=== PATIENT | female | born 1990 | race Caucasian/White ===

== ENCOUNTER 2016-09-02 21:14 | Inpatient (IN) | payer OTHER, BC ==
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
[2016-09-02] MEDS ORDERED: LORazepam 1 MG TAB ONE (21:52)
[2016-09-02] MEDS ORDERED: LORazepam 1 MG TAB PO ONE (21:59)
[2016-09-02 22:04] LABS: % IMMATURE GRANULYOCYTES 0.3 % (0.0-1.1); ABSOLUTE IMMATURE GRANULOCYTES 0.02 10^3/uL (0.00-0.10); ADD DIFF? NO; ADD MORPH? NO; ADD SCAN? NO; ATYPICAL LYMPHOCYTE FLAG 10 (0-99); FRAGMENT RBC FLAG 0 (0-99); HEMATOCRIT 37.9 % (38.0-47.0); HEMOGLOBIN 12.6 g/dL (12.6-16.3); LEFT SHIFT FLG 0 (0-99); LIPEMIA HEMOLYSIS FLAG 80 (0-99); MEAN CELL HEMOGLOBIN 27.9 pg (27.9-34.1); MEAN CELL HEMOGLOBIN CONCENTR. 33.2 g/dL (32.4-36.7); MEAN CELL VOLUME 83.8 fL (81.5-99.8); MEAN PLATELET VOLUME 9.6 fL (8.7-11.7); PLATELET CLUMPS FLAG 0 (0-99); PLATELET COUNT 278 10^3/uL (150-400); RED BLOOD CELL COUNT 4.52 10^6/uL (4.18-5.33); RED CELL DISTRIBUTION WIDTH 13.1 % (11.5-15.2)
[2016-09-02 22:16] LABS: ANION GAP 10 mEq/L (8-16); CALCIUM 9.4 mg/dL (8.5-10.4); CARBON DIOXIDE 23 mEq/l (22-31); CHLORIDE 102 mEq/L (97-110); CREATININE 0.7 mg/dL (0.6-1.0); ETHANOL SERUM < 10 mg/dL (0-10); GLOMERULAR FILTRATION RATE > 60; GLUCOSE 92 mg/dL (70-100); SODIUM 135 mEq/L (134-144)
[2016-09-03] MEDS ORDERED: OLANZapine DISINTEGR 10 MG TAB PO PRN (15:31)
[2016-09-03] MEDS ORDERED: LORazepam 0.5 MG TAB PO PRN (15:31)
[2016-09-03] MEDS ORDERED: MAGNESIUM HYDROXIDE 30 ML UDCUP PO PRN (15:31)
[2016-09-03] MEDS: clonazePAM 0.5 MG TAB PO PRN (16:13)
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
[2016-09-03] MEDS ORDERED: risperiDONE 0.5 MG TAB PO PRN (17:21)
[2016-09-03] MEDS: risperiDONE 1 MG TAB PO SCH (20:34)
[2016-09-03] MEDS: DIVALPROEX ER 500 MG TAB PO SCH (20:34)
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
[2016-09-04] MEDS ORDERED: OLANZapine 10 MG/2 ML VIAL IM ONE ×2 (08:21→08:30)
[2016-09-04] MEDS ORDERED: LORazepam 2 MG/ML INJ ONE (08:22)
[2016-09-04] MEDS ORDERED: OLANZapine DISINTEGR 10 MG TAB PO ONE (08:30)
[2016-09-04] MEDS ORDERED: LORazepam 2 MG/ML INJ IM ONE (08:30)
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
[2016-09-04] MEDS: risperiDONE 1 MG TAB PO SCH ×2 (10:27→20:54)
[2016-09-04] MEDS: DIVALPROEX ER 500 MG TAB PO SCH ×2 (10:28→20:54)
[2016-09-04] MEDS: clonazePAM 0.5 MG TAB PO PRN ×2 (10:28→20:59)
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
[2016-09-04] MEDS: PRAZOSIN HCL 1 MG CAP PO SCH (20:54)
[2016-09-04] MEDS ORDERED: PRAZOSIN HCL 1 MG CAP PO PRN (22:20)
[2016-09-05] MEDS: NICOTINE POLACRILEX 2 MG GUM B PRN ×2 (06:54→23:51)
[2016-09-05] MEDS: clonazePAM 0.5 MG TAB PO PRN ×2 (06:54→16:02)
[2016-09-05] MEDS: DIVALPROEX ER 500 MG TAB PO SCH ×4 (08:29→23:50)
[2016-09-05] MEDS: traMADol 50 MG TAB PO PRN ×2 (08:29→14:43)
[2016-09-05] MEDS: risperiDONE 1 MG TAB PO SCH ×3 (08:29→23:50)
[2016-09-05] MEDS: ACETAMINOPHEN 325 MG TAB PO PRN ×2 (10:51→12:25)
[2016-09-05] MEDS ORDERED: ONDANSETRON 0.8 MG/ML UDSYR PO PRN (12:03)
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
[2016-09-05] MEDS: hydrOXYzine HCL 25 MG TAB PO PRN (16:02)
[2016-09-05] MEDS: PRAZOSIN HCL 1 MG CAP PO SCH ×2 (21:01→23:51)
[2016-09-06] MEDS: traMADol 50 MG TAB PO PRN (00:13)
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
[2016-09-06] MEDS: risperiDONE 1 MG TAB PO SCH ×2 (08:28→19:41)
[2016-09-06] MEDS: DIVALPROEX ER 500 MG TAB PO SCH ×2 (08:28→17:34)
[2016-09-06] MEDS: hydrOXYzine HCL 25 MG TAB PO PRN (12:54)
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
[2016-09-06] MEDS: clonazePAM 0.5 MG TAB PO PRN (18:08)
[2016-09-06] MEDS: PRAZOSIN HCL 1 MG CAP PO SCH (19:41)
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
[2016-09-07] MEDS: risperiDONE 1 MG TAB PO SCH ×3 (09:00→20:20)
[2016-09-07] MEDS: DIVALPROEX ER 500 MG TAB PO SCH ×2 (09:01→17:33)
[2016-09-07] MEDS: clonazePAM 0.5 MG TAB PO PRN (12:24)
[2016-09-07] MEDS: traMADol 50 MG TAB PO PRN (12:24)
[2016-09-07] MEDS ORDERED: risperiDONE 1 MG TAB PO SCH (13:30)
[2016-09-07] MEDS: clonazePAM 0.5 MG TAB PO SCH ×2 (15:47→20:18)
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
[2016-09-07] MEDS: ACETAMINOPHEN 325 MG TAB PO PRN (16:29)
[2016-09-07] MEDS: PRAZOSIN HCL 1 MG CAP PO SCH (20:18)
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
[2016-09-08] MEDS: clonazePAM 0.5 MG TAB PO SCH ×3 (08:23→20:40)
[2016-09-08] MEDS: risperiDONE 1 MG TAB PO SCH ×3 (08:23→20:41)
[2016-09-08] MEDS: DIVALPROEX ER 500 MG TAB PO SCH ×2 (08:23→20:40)
[2016-09-08] MEDS: buPROPion XL 150 MG TAB PO SCH (10:20)
[2016-09-08] MEDS: OLANZapine DISINTEGR 5 MG TAB PO PRN (11:39)
[2016-09-08] MEDS: clonazePAM 0.5 MG TAB PO PRN (11:39)
[2016-09-08] MEDS: traMADol 50 MG TAB PO PRN (11:47)
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
[2016-09-08] MEDS: PRAZOSIN HCL 1 MG CAP PO SCH (20:40)
[2016-09-09] MEDS: traMADol 50 MG TAB PO PRN ×2 (05:50→12:55)
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
[2016-09-09] MEDS: buPROPion XL 150 MG TAB PO SCH (09:22)
[2016-09-09] MEDS: risperiDONE 1 MG TAB PO SCH ×3 (09:22→19:50)
[2016-09-09] MEDS: DIVALPROEX ER 500 MG TAB PO SCH ×2 (09:22→19:50)
[2016-09-09] MEDS: clonazePAM 0.5 MG TAB PO SCH ×3 (09:23→19:48)
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
[2016-09-09] MEDS: ONDANSETRON DISINTEGRATING 4 MG TAB PO PRN (15:36)
[2016-09-09] MEDS: PRAZOSIN HCL 1 MG CAP PO SCH (19:50)
[2016-09-09] MEDS ORDERED: PRAZOSIN HCL 5 MG CAP PO SCH (21:00)
[2016-09-10] MEDS: ONDANSETRON DISINTEGRATING 4 MG TAB PO PRN (01:41)
[2016-09-10] MEDS: ACETAMINOPHEN 325 MG TAB PO PRN ×3 (01:41→16:21)
[2016-09-10] MEDS: traMADol 50 MG TAB PO PRN ×3 (01:42→14:59)
[2016-09-10] MEDS: MAG HYDROX/AL HYDROX/SIMETH 30 ML UDCUP PO PRN ×2 (06:44→21:34)
[2016-09-10] MEDS: DIVALPROEX ER 500 MG TAB PO SCH ×2 (08:20→20:39)
[2016-09-10] MEDS: buPROPion XL 150 MG TAB PO SCH (08:20)
[2016-09-10] MEDS: clonazePAM 0.5 MG TAB PO SCH ×3 (08:21→20:39)
[2016-09-10] MEDS: risperiDONE 1 MG TAB PO SCH ×3 (08:21→20:40)
[2016-09-10] MEDS: clonazePAM 0.5 MG TAB PO PRN ×2 (10:44→16:39)
[2016-09-10] MEDS: OLANZapine DISINTEGR 5 MG TAB PO PRN ×2 (10:45→16:39)
[2016-09-10] MEDS: NICOTINE POLACRILEX 2 MG GUM B PRN (15:00)
--- NOTE | 2016-09-10 15:40 | SOAPPROG ---
SOAP Progress Note Assessment/Plan: Assessment: Plan: 09/10/16 15:42 Slow progress. Erik regressed in some ways. CCM. Subjective: Pt seen, discussed with staff, chart reviewed. She is a 26 y/o CF with complex psychiatric picture. Erik regressed at this point in her treatment though continues to lie down in front of the RN's station on the floor in awkward positions with her hair covering her face and stay in that position for extended periods of time. No other real acting out behaviors. She requests AG and I discussed with her the fact that she will need to progress through the steps of removing SP and AP first. She is antagonistic and insulting. C/o bilateral hip pain today that his the sole focus of her interactions with myself and staff. She states she gets "some kind of shot" about every three months for this. Unable to say what that is. Claims "no one here give a shit" when I tell her we are unable to give her hip injections on this unit. I suggested to her that she consider not sitting or lying on the floor in the future as this will certainly worsen the condition. Objective: Vital Signs Temp Pulse Resp BP Pulse Ox 36.4 C 96 15 115/59 L 92 09/07/16 07:53 09/10/16 06:19 09/10/16 06:19 09/10/16 06:19 09/10/16 06:19 MSE: Antagonistic, irritable. Affect is o/w constricted, stable. Mood is "terrible." TP linear. TC reveals no psychosis. She reported herself 0/10 on the SP scale this morning but tells me now that "I want to cut my leg off it hurts so bad, but I'm not suicidal." - Time Spent With Patient Time Spent With Patient: 25" - Pending Discharge Pending Discharge Within 24 Hours: No Pending Discharge Within 48 Hours: No ICD10 Worksheet Patient Problems: Problems Problem Status Onset Behavioral disorder Acute Suicidal ideation Acute
[2016-09-10] MEDS: PRAZOSIN HCL 1 MG CAP PO SCH (20:39)
[2016-09-11] MEDS: buPROPion XL 150 MG TAB PO SCH (07:49)
[2016-09-11] MEDS: DIVALPROEX ER 500 MG TAB PO SCH ×2 (07:49→18:03)
[2016-09-11] MEDS: risperiDONE 1 MG TAB PO SCH ×3 (07:49→18:03)
[2016-09-11] MEDS: clonazePAM 0.5 MG TAB PO SCH ×3 (07:50→18:04)
[2016-09-11] MEDS: clonazePAM 0.5 MG TAB PO PRN ×2 (10:55→13:59)
[2016-09-11] MEDS: OLANZapine DISINTEGR 5 MG TAB PO PRN ×2 (10:55→14:39)
[2016-09-11] MEDS: traMADol 50 MG TAB PO PRN (10:55)
--- NOTE | 2016-09-11 11:26 | SOAPPROG ---
SOAP Progress Note Assessment/Plan: Assessment: Plan: 09/10/16 15:42 Slow progress. Less regressed in some ways. CCM. 09/11/16 11:28 Behaviorally stable. CCM. Will d/c AP to work towards d/c. Subjective: Pt seen briefly. Lying in bed with sheets over her head. Minimally interactive. Refuses further interview later. Behaviors remain in good control. Continues to request advancement in privileges. I discussed with her a plan to eliminate AP and then hopefully SP to allow her to more forward towards d/c. Objective: Vital Signs Temp Pulse Resp BP Pulse Ox 36.4 C 110 H 16 102/59 L 95 09/11/16 07:14 09/11/16 07:14 09/11/16 07:14 09/11/16 07:14 09/11/16 07:14 MSE: Calm, though guarded. Affect is blunted, stable. Mood is not stated. Appears linear. Acknowledges conversation. No overt psychosis. - Time Spent With Patient Time Spent With Patient: 15" ICD10 Worksheet Patient Problems: Problems Problem Status Onset Behavioral disorder Acute Suicidal ideation Acute
[2016-09-11] MEDS: PRAZOSIN HCL 1 MG CAP PO SCH (18:04)
[2016-09-11] MEDS: ACETAMINOPHEN 325 MG TAB PO PRN (18:46)
[2016-09-11] MEDS: MAG HYDROX/AL HYDROX/SIMETH 30 ML UDCUP PO PRN (20:01)
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
[2016-09-12] MEDS: buPROPion XL 150 MG TAB PO SCH (08:19)
[2016-09-12] MEDS: DIVALPROEX ER 500 MG TAB PO SCH ×3 (08:21→20:08)
[2016-09-12] MEDS: clonazePAM 0.5 MG TAB PO SCH ×3 (08:21→20:09)
[2016-09-12] MEDS: risperiDONE 1 MG TAB PO SCH ×3 (08:21→20:09)
[2016-09-12] MEDS: clonazePAM 0.5 MG TAB PO PRN ×3 (09:43→20:57)
[2016-09-12] MEDS: OLANZapine DISINTEGR 5 MG TAB PO PRN ×3 (10:24→20:57)
[2016-09-12] MEDS: NICOTINE POLACRILEX 2 MG GUM B PRN (16:49)
[2016-09-12] MEDS: traMADol 50 MG TAB PO PRN (17:23)
[2016-09-12] MEDS: PRAZOSIN HCL 5 MG CAP PO SCH ×2 (20:06→20:09)
[2016-09-12] MEDS: DOXEPIN HCL 25 MG CAP PO SCH ×2 (20:06→20:09)
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
[2016-09-13] MEDS: buPROPion XL 150 MG TAB PO SCH (08:15)
[2016-09-13] MEDS: clonazePAM 0.5 MG TAB PO SCH ×3 (08:16→20:52)
[2016-09-13] MEDS: DIVALPROEX ER 500 MG TAB PO SCH ×2 (08:16→20:46)
[2016-09-13] MEDS: risperiDONE 1 MG TAB PO SCH ×3 (08:16→20:52)
[2016-09-13] MEDS: clonazePAM 0.5 MG TAB PO PRN (10:19)
[2016-09-13] MEDS: OLANZapine DISINTEGR 5 MG TAB PO PRN (14:10)
[2016-09-13] MEDS: MAG HYDROX/AL HYDROX/SIMETH 30 ML UDCUP PO PRN (14:10)
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
[2016-09-13] MEDS: traMADol 50 MG TAB PO PRN (17:44)
[2016-09-13] MEDS: PRAZOSIN HCL 5 MG CAP PO SCH (20:45)
[2016-09-13] MEDS: DOXEPIN HCL 25 MG CAP PO SCH (20:46)
[2016-09-14] MEDS: traMADol 50 MG TAB PO PRN ×3 (00:47→23:47)
[2016-09-14] MEDS: OLANZapine DISINTEGR 5 MG TAB PO PRN ×2 (01:15→14:22)
[2016-09-14] MEDS: clonazePAM 0.5 MG TAB PO PRN ×3 (01:15→14:23)
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
[2016-09-14] MEDS: DIVALPROEX ER 500 MG TAB PO SCH ×2 (08:26→20:18)
[2016-09-14] MEDS: risperiDONE 1 MG TAB PO SCH ×3 (08:28→20:20)
[2016-09-14] MEDS: buPROPion XL 150 MG TAB PO SCH (08:28)
[2016-09-14] MEDS: clonazePAM 0.5 MG TAB PO SCH ×4 (10:38→20:20)
[2016-09-14] MEDS: MAG HYDROX/AL HYDROX/SIMETH 30 ML UDCUP PO PRN (20:03)
[2016-09-14] MEDS: PRAZOSIN HCL 5 MG CAP PO SCH (20:18)
[2016-09-14] MEDS: DOXEPIN HCL 50 MG CAP PO SCH (20:18)
[2016-09-15] MEDS: clonazePAM 0.5 MG TAB PO PRN ×2 (00:41→09:28)
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
[2016-09-15] MEDS: buPROPion XL 150 MG TAB PO SCH (07:33)
[2016-09-15] MEDS: DIVALPROEX ER 500 MG TAB PO SCH ×2 (07:33→18:00)
[2016-09-15] MEDS: risperiDONE 1 MG TAB PO SCH ×3 (07:34→18:00)
[2016-09-15] MEDS: clonazePAM 0.5 MG TAB PO SCH ×3 (07:34→18:00)
[2016-09-15] MEDS: traMADol 50 MG TAB PO PRN ×2 (07:34→21:04)
[2016-09-15] MEDS: MAG HYDROX/AL HYDROX/SIMETH 30 ML UDCUP PO PRN (08:18)
[2016-09-15] MEDS: OLANZapine DISINTEGR 5 MG TAB PO PRN (09:28)
[2016-09-15] MEDS: ONDANSETRON DISINTEGRATING 4 MG TAB PO PRN (13:16)
[2016-09-15] MEDS ORDERED: LORazepam 1 MG TAB PO PRN (15:24)
[2016-09-15] MEDS: PRAZOSIN HCL 5 MG CAP PO SCH (18:00)
[2016-09-15] MEDS: DOXEPIN HCL 50 MG CAP PO SCH (18:00)
[2016-09-16] MEDS: ACETAMINOPHEN 325 MG TAB PO PRN (00:48)
[2016-09-16] MEDS: traMADol 50 MG TAB PO PRN (03:12)
[2016-09-16 06:24] VITALS: O2SAT 95
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
[2016-09-16] MEDS: buPROPion XL 150 MG TAB PO SCH ×2 (08:34→15:14)
[2016-09-16] MEDS: DIVALPROEX ER 500 MG TAB PO SCH ×3 (08:34→18:03)
[2016-09-16] MEDS: clonazePAM 0.5 MG TAB PO SCH ×4 (08:35→21:20)
[2016-09-16] MEDS: risperiDONE 1 MG TAB PO SCH ×2 (08:35→15:20)
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
[2016-09-16] MEDS ORDERED: OLANZapine 10 MG TAB ONE (15:57)
[2016-09-16] MEDS ORDERED: OLANZapine DISINTEGR 10 MG TAB ONE (16:13)
[2016-09-16] MEDS: OLANZapine DISINTEGR 10 MG TAB PO SCH ×2 (16:14→21:21)
[2016-09-16 16:42] VITALS: BP 120/67; PULSE 101; RESP 14; TEMP 97.7
[2016-09-16] MEDS: PRAZOSIN HCL 5 MG CAP PO SCH (21:20)
[2016-09-16] MEDS: DOXEPIN HCL 50 MG CAP PO SCH (21:21)
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
[2016-09-17] MEDS: OLANZapine DISINTEGR 10 MG TAB PO SCH (08:03)
[2016-09-17] MEDS: LORazepam 1 MG TAB PO PRN (08:04)
[2016-09-17] MEDS: OLANZapine DISINTEGR 5 MG TAB PO PRN (08:05)
[2016-09-17] MEDS: ONDANSETRON DISINTEGRATING 4 MG TAB PO PRN ×2 (08:05→21:38)
[2016-09-17] MEDS: DIVALPROEX ER 500 MG TAB PO SCH ×2 (08:06→18:34)
[2016-09-17] MEDS: buPROPion XL 150 MG TAB PO SCH (08:06)
[2016-09-17] MEDS: clonazePAM 0.5 MG TAB PO SCH ×4 (08:07→21:39)
[2016-09-17] MEDS: traMADol 50 MG TAB PO PRN (08:08)
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
[2016-09-17] MEDS: DOXEPIN HCL 50 MG CAP PO SCH (18:34)
[2016-09-17] MEDS: PRAZOSIN HCL 5 MG CAP PO SCH (18:34)
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
[2016-09-18] MEDS: DIVALPROEX ER 500 MG TAB PO SCH ×2 (08:41→20:05)
[2016-09-18] MEDS: buPROPion XL 150 MG TAB PO SCH (08:41)
[2016-09-18] MEDS: clonazePAM 0.5 MG TAB PO SCH ×4 (10:16→21:20)
[2016-09-18] MEDS: ONDANSETRON DISINTEGRATING 4 MG TAB PO PRN (11:52)
[2016-09-18] MEDS: MAG HYDROX/AL HYDROX/SIMETH 30 ML UDCUP PO PRN (13:34)
[2016-09-18] MEDS: traMADol 50 MG TAB PO PRN (15:18)
[2016-09-18] MEDS: DOXEPIN HCL 50 MG CAP PO SCH (20:05)
[2016-09-18] MEDS: PRAZOSIN HCL 5 MG CAP PO SCH (20:05)
[2016-09-18] MEDS: ACETAMINOPHEN 325 MG TAB PO PRN (22:15)
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
[2016-09-19] MEDS: OLANZapine DISINTEGR 10 MG TAB PO SCH ×2 (07:52→21:17)
[2016-09-19] MEDS: LORazepam 1 MG TAB PO PRN (07:52)
[2016-09-19] MEDS: OLANZapine DISINTEGR 5 MG TAB PO PRN ×2 (08:14→11:57)
[2016-09-19] MEDS: clonazePAM 0.5 MG TAB PO SCH ×2 (08:14→12:00)
[2016-09-19] MEDS ORDERED: clonazePAM 0.5 MG TAB PO ONE (09:00)
[2016-09-19] MEDS: DIVALPROEX ER 500 MG TAB PO SCH ×2 (11:57→21:17)
[2016-09-19] MEDS: buPROPion XL 150 MG TAB PO SCH (12:01)
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
[2016-09-19] MEDS ORDERED: clonazePAM 0.5 MG TAB PO PRN (14:46)
[2016-09-19] MEDS: ONDANSETRON DISINTEGRATING 4 MG TAB PO PRN (18:53)
[2016-09-19] MEDS: risperiDONE 2 MG TAB PO SCH (21:17)
[2016-09-19] MEDS: DOXEPIN HCL 50 MG CAP PO SCH (21:18)
[2016-09-19] MEDS: PRAZOSIN HCL 5 MG CAP PO SCH (21:18)
[2016-09-20] MEDS: DIVALPROEX ER 500 MG TAB PO SCH ×2 (09:17→20:58)
[2016-09-20] MEDS: buPROPion XL 150 MG TAB PO SCH (09:17)
[2016-09-20] MEDS: traMADol 50 MG TAB PO PRN (09:50)
[2016-09-20] MEDS: ONDANSETRON DISINTEGRATING 4 MG TAB PO PRN (20:00)
[2016-09-20] MEDS: risperiDONE 2 MG TAB PO SCH (20:58)
[2016-09-20] MEDS: DOXEPIN HCL 50 MG CAP PO SCH (20:58)
[2016-09-20] MEDS: PRAZOSIN HCL 5 MG CAP PO SCH (20:58)
[2016-09-21] MEDS: DIVALPROEX ER 500 MG TAB PO SCH (07:39)
[2016-09-21] MEDS: buPROPion XL 150 MG TAB PO SCH (07:39)
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
== END 2016-09-21 09:30 | disposition home or self-care (01) | DRG 883 ==
LOC: BBEH 09-03 13:25
PROVIDERS: ADMIT Psychiatry & Neurology Behavioral Neurology & Neuropsychiatry; ATTEND Psychiatry & Neurology Behavioral Neurology & Neuropsychiatry
DX: F60.3 Borderline personality disorder (principal); F31.9 Bipolar disorder, unspecified; F43.10 Post-traumatic stress disorder, unspecified
CPT/HCPCS: 80305; G0480; J1200; J2060